=== PATIENT | male | born 1935 | race Caucasian/White ===

== ENCOUNTER 2017-06-27 14:11 | Emergency (ER) | payer MEDICARE, OTHER ==
[2017-06-27] MEDS ORDERED: Acetaminophen 500 MG TAB ONE (15:14)
--- NOTE | 2017-06-27 15:57 | RAD ---
RIGHT HIP TWO VIEWS: HISTORY: Fell at home. Hip pain. FINDINGS: There are arthritic changes of the hip. There are no signs of fracture or dislocation. IMPRESSION: No evidence of fracture. POS: PARDEEP
--- NOTE | 2017-06-27 15:59 | RAD ---
RIGHT FEMUR TWO VIEWS: HISTORY: Fell with femur pain. FINDINGS: There are arthritic changes of the hip and a total knee prosthesis. There are vascular calcification s. There is no evidence of fracture. IMPRESSION: No evidence of fracture. POS: PARDEEP
--- NOTE | 2017-06-27 16:11 | RAD ---
RADIOGRAPH LUMBAR SPINE 3 VIEWS: DATE: 06-27-17 TIME: 3:35 p.m. HISTORY: 82-year-old male with acute traumatic lumbar pain due to fall. COMPARISON: There are no prior plain radiographs or CTs of the lumbar spine. FINDINGS: There are five lumbar type vertebrae. Laminectomy defects are noted at lower levels. Dextroscoliosis associated with severe left sided degenerative disc disease. There is multilevel high grade bilateral degenerative facet disease. Mild grade I anterolisthesis of L4 on L5 due to degenerative facet disea se. No collapse of vertebral bodies identified. There are broad, shallow indentations of superior end plates of multiple levels in the upper and mid lumbar spine, and lower thoracic spine, of indetermina te age, presumably chronic. Multiple moderate and large endplate marginal osteophytes protruding ante riorly into the prevertebral space. Diffuse osteopenia. Multilevel high-grade disc space narrowing. IMPRESSION: 1. No definitive evidence of acute lumbar compression fracture. 2. Mild, broad, shallow indentations of superior endplates of T12, L1, and L2, of indeterminate age, but favored to be chronic. 3. High grade lumbar spondylosis with multilevel degenerative disc disease and facet osteoarthrosis. 4. Status post laminectomies at lower levels. NORMA POS: PARDEEP
[2017-06-27 16:20] LABS: Bilirubin Negative (Negative); Blood, Urine Negative (Negative); Clarity Clear (Clear); Glucose, Urine (Dipstick) Negative (Negative); Leukocyte Negative (Negative); Nitrite Negative (Negative); Protein, Urine (Dipstick) Negative (Neg-Trace); Urobilinogen 0.2 mg/dL (0.2-1.0)
[2017-06-27 16:24] LABS: Specific Gravity, Urine 1.027 (1.002-1.036)
== END 2017-06-27 16:54 | disposition home or self-care (01) ==
LOC: NAV ERS 14:11
DX: M54.41 Lumbago with sciatica, right side (principal); G89.29 Other chronic pain
CPT/HCPCS: 72100; 81003

== ENCOUNTER 2019-09-16 11:29 | Emergency (ER) | payer MEDICARE, OTHER | END 2019-09-16 11:45 | disposition home or self-care (01) | LOC: NAV ERS 11:29 | DX: T16.1XXA Foreign body in right ear, initial encounter (principal) | CPT/HCPCS: 69200 ==

== ENCOUNTER 2020-03-01 08:19 | Emergency (ER) | payer MEDICARE, OTHER ==
[2020-03-01 08:52] LABS: #Basophils 0.1 thou/uL (0.0-0.2); #Eosinphils 0.6 thou/uL (0.0-0.7); #Lymphocytes 2.4 thou/uL (1.20-3.40); #Monocytes 0.6 thou/uL (0.11-0.59); #Neutrophils 3.4 thou/uL (1.40-6.50); %Eosinophils 8.2 % (0.0-10.0); %Lymphocytes 33.7 % (21.0-51.0); %Monocytes 8.6 % (0.0-10.0); %Neutrophils 47.6 % (42.0-75.0); Hemoglobin 12.8 g/dL (14.0-18.0); Mean Corpuscular HGB CONC 29.3 g/dL (32.0-36.0); Mean Corpuscular Hemoglobin 27.4 pg (27.0-31.0); Mean Corpuscular Volume 93.6 fL (78.0-98.0); Mean Platelet Volume 9.4 fL (7.4-10.4); Platelet Count 134 thou/uL (130-400); RBC Distribution Width 12.9 % (11.5-14.5); Red Blood Cell (RBC) Count 4.65 mill/uL (4.70-6.10); White Blood Cell (WBC) Count 7.2 thou/uL (4.8-10.8)
[2020-03-01 09:06] LABS: ALT (SGPT) 17 U/L (8-55); AST (SGOT) 19 U/L (5-34); Albumin 3.3 g/dL (3.4-4.8); Alkaline Phosphatase 54 U/L (40-110); Anion Gap 14 mmol/L (10-20); BUN (Urea Nitrogen) 15 mg/dL (8.4-25.7); Bilirubin, Total 0.3 mg/dL (0.2-1.2); CK (CPK) 40 U/L (30-200); Calc. Creatinine Clearance 0 mL/min (70-130); Calcium 8.5 mg/dL (7.8-10.44); Carbon Dioxide 22 mmol/L (23-31); Chloride 108 mmol/L (98-107); Estimated GFR-MDRD 79; Globulin 2.9 g/dL (2.4-3.5); Glucose 101 mg/dL (83-110); Potassium 4.1 mmol/L (3.5-5.1); Protein, Total 6.2 g/dL (5.8-8.1); Sodium 140 mmol/L (136-145)
--- NOTE | 2020-03-01 09:13 | RAD ---
XR Chest 1 View Portable HISTORY: Palpitations COMPARISON: 12/05/2018 FINDINGS: The heart size is normal. The lungs are well expanded without focal areas of consolidation, pneumothorax or pleural effusions. IMPRESSION: No radiographic evidence of acute cardiopulmonary process.
[2020-03-01] MEDS ORDERED: Aspirin Chewable 81 MG TAB ONE (09:31)
[2020-03-01 09:34] LABS: CKMB 1.6 ng/mL (0-6.6)
[2020-03-01 10:38] LABS: Hypochromia SLIGHT = 6-15 cells (100X) (0-5/hpf); MDiff Complete? YES; Platelet Morphology Comment Appears Adequate
== END 2020-03-01 10:01 | disposition short-term general hospital (02) ==
LOC: NAV ERS 08:19
DX: R00.2 Palpitations (principal); R74.8 Abnormal levels of other serum enzymes; K21.9 Gastro-esophageal reflux disease without esophagitis; Z79.82 Long term (current) use of aspirin; Z79.899 Other long term (current) drug therapy
CPT/HCPCS: 71045; 80053; 82550; 82553; 84484; 85025; 93005; 94760

== ENCOUNTER 2021-04-26 16:02 | Outpatient (CLI) | payer MEDICARE, OTHER ==
[2021-04-27 21:58] LABS: SARS-CoV-2 PCR by NAA Not Detected (NotDetected)
== END 2021-04-26 16:03 | disposition home or self-care (01) ==
LOC: NAV RAD 16:02
PROVIDERS: ATTEND Family Medicine
DX: R05.9 Cough, unspecified (principal)
CPT/HCPCS: 71046; U0003; U0005

== ENCOUNTER 2021-06-01 16:27 | Outpatient (CLI) | payer MEDICARE, OTHER | END 2021-06-01 16:28 | disposition home or self-care (01) | LOC: NAV RAD 16:27 | PROVIDERS: ATTEND Family Medicine | DX: U07.1 COVID-19 (principal); J11.1 Influenza due to unidentified influenza virus with other respiratory manifestations | CPT/HCPCS: 71046 ==

== ENCOUNTER 2022-01-04 16:31 | Outpatient (CLI) | payer MEDICARE, OTHER | END 2022-01-04 16:32 | disposition home or self-care (01) | LOC: NAV RAD 16:31 | PROVIDERS: ATTEND Family Medicine | DX: M53.3 Sacrococcygeal disorders, not elsewhere classified (principal); M47.816 Spondylosis without myelopathy or radiculopathy, lumbar region; M16.12 Unilateral primary osteoarthritis, left hip | CPT/HCPCS: 72100 ==

== ENCOUNTER 2023-02-17 09:04 | Emergency (ER) | payer OTHER, MEDICARE ==
[2023-02-17] MEDS ORDERED: Lidocaine 1% (PF) 30 ML VIAL ONE (09:49)
[2023-02-17] MEDS ORDERED: Boostrix 0.5 ML (Tdap) VIAL (>/=7 yrs of age) ONE (10:18)
== END 2023-02-17 10:40 | disposition home or self-care (01) ==
LOC: NAV ERS 09:04
DX: S01.511A Laceration without foreign body of lip, initial encounter (principal); S01.01XA Laceration without foreign body of scalp, initial encounter; S60.512A Abrasion of left hand, initial encounter; S60.511A Abrasion of right hand, initial encounter; S60.811A Abrasion of right wrist, initial encounter; K21.9 Gastro-esophageal reflux disease without esophagitis; Z23 Encounter for immunization; W01.0XXA Fall on same level from slipping, tripping and stumbling without subsequent striking against object, initial encounter
CPT/HCPCS: 12001; 70450; 70486; 90471; 90715; J2001

== ENCOUNTER 2023-02-24 11:31 | Emergency (ER) | payer MEDICARE, OTHER | END 2023-02-24 12:19 | disposition home or self-care (01) | LOC: NAV ERS 11:31 | DX: S01.511D Laceration without foreign body of lip, subsequent encounter (principal); S01.81XD Laceration without foreign body of other part of head, subsequent encounter; F07.81 Postconcussional syndrome; Z48.02 Encounter for removal of sutures; W18.30XD Fall on same level, unspecified, subsequent encounter ==

== ENCOUNTER 2024-09-05 11:29 | Emergency (ER) | payer MEDICARE, OTHER ==
[2024-09-05] MEDS ORDERED: Bacitracin 1 PK ONE (12:28)
== END 2024-09-05 13:17 | disposition home or self-care (01) ==
LOC: NAV ERS 11:29
DX: S01.01XA Laceration without foreign body of scalp, initial encounter (principal); S00.33XA Contusion of nose, initial encounter; S00.93XA Contusion of unspecified part of head, initial encounter; W22.8XXA Striking against or struck by other objects, initial encounter
CPT/HCPCS: 12001; 70450; 70486